=== PATIENT | female | born 1960 | race Caucasian/White ===

== ENCOUNTER 2016-07-23 20:39 | Emergency (ER) | payer MEDICAID ==
[~2016-07-23] VITALS: Ht 165.1 cm; Wt 65.8 kg
[~2016-07-23 20:39] MED LIST: FLUO20CA36 PO
--- NOTE | 2016-07-23 21:06 | NUR ---
Patient discharged to home in stable conditon. Written and verbal after care instructions given. Patient verbalizes understanding of instructions.
== END 2016-07-23 21:21 | disposition home or self-care (01) ==
LOC: ER 20:39
DX: R21 Rash and other nonspecific skin eruption (principal); J45.909 Unspecified asthma, uncomplicated; Z88.6 Allergy status to analgesic agent
CPT/HCPCS: 99283; A4663

== ENCOUNTER 2018-08-28 03:14 | Emergency (ER) | payer MEDICAID ==
[~2018-08-28] VITALS: Ht 165.1 cm; Wt 54.4 kg
--- NOTE | 2018-08-28 04:23 | NUR ---
pt is in room #1b. dr novoa evaluated the pt.
--- NOTE | 2018-08-28 05:22 | NUR ---
pt was d/c'd to home. d/c instructions given to the pt.
[2018-08-28 05:23] VITALS: BP 129/78
== END 2018-08-28 05:24 | disposition home or self-care (01) ==
LOC: ER 03:18
DX: S49.92XA Unspecified injury of left shoulder and upper arm, initial encounter (principal); S89.92XA Unspecified injury of left lower leg, initial encounter; Z88.5 Allergy status to narcotic agent; Z79.899 Other long term (current) drug therapy; X58.XXXA Exposure to other specified factors, initial encounter; Y93.89 Activity, other specified; Y92.89 Other specified places as the place of occurrence of the external cause; Y99.8 Other external cause status
CPT/HCPCS: 73030; A4663

== ENCOUNTER 2019-03-10 23:39 | Emergency (ER) | payer MEDICAID, OTHER ==
[~2019-03-10] VITALS: Ht 165.1 cm; Wt 55.8 kg
[2019-03-11] MEDS ORDERED: TRAMADOL HCL 50 MG TABLET PO ONE
[2019-03-11] MEDS ORDERED: TRAMADOL HCL 50 MG TABLET ONE (00:01)
--- NOTE | 2019-03-11 01:02 | NUR ---
Patient discharged to home in stable conditon. Written and verbal after care instructions given. Patient verbalizes understanding of instructions. Pt walked out of ER in stable gait with friend who will drive pt home. Pt states she feels better. No acute distress noted. Vital signs stable. Respirations even + unlabored.
[2019-03-11 01:06] VITALS: BP 121/66
== END 2019-03-11 01:07 | disposition home or self-care (01) ==
LOC: ER 23:49
DX: F07.81 Postconcussional syndrome (principal); M54.2 Cervicalgia; R07.9 Chest pain, unspecified; M79.631 Pain in right forearm; J45.909 Unspecified asthma, uncomplicated; F17.210 Nicotine dependence, cigarettes, uncomplicated; Z88.5 Allergy status to narcotic agent; Z79.899 Other long term (current) drug therapy
CPT/HCPCS: 70450; 71045; 72125; 73090; A4663

== ENCOUNTER 2024-05-23 22:05 | Emergency (ER) | payer OTHER ==
[~2024-05-23] VITALS: Ht 162.6 cm; Wt 61.2 kg
[2024-05-23] MEDS ORDERED: PRED50TA PO (23:27)
[2024-05-23] MEDS ORDERED: CEPH500C2 PO (23:27)
[2024-05-23] MEDS ORDERED: CEphaleXIN 500 MG CAPSULE ONE (23:33)
[2024-05-23] MEDS ORDERED: predniSONE 50 MG TABLET ONE (23:33)
[2024-05-23] MEDS: CEphaleXIN 500 MG CAPSULE PO ONE (23:37)
[2024-05-23 23:38] VITALS: BP 132/74; O2SAT 98
[2024-05-23] MEDS: predniSONE 50 MG TABLET PO ONE (23:38)
== END 2024-05-23 23:39 | disposition home or self-care (01) ==
LOC: ER 22:05
DX: L03.211 Cellulitis of face (principal); L02.01 Cutaneous abscess of face; F17.200 Nicotine dependence, unspecified, uncomplicated; J45.909 Unspecified asthma, uncomplicated; Z79.52 Long term (current) use of systemic steroids; Z79.899 Other long term (current) drug therapy; Z88.5 Allergy status to narcotic agent; Z88.7 Allergy status to serum and vaccine
CPT/HCPCS: 99283; J7512; A4606; A4663

== ENCOUNTER 2024-05-26 23:41 | Emergency (ER) | payer OTHER ==
[~2024-05-26] VITALS: Ht 162.6 cm; Wt 60.8 kg
[~2024-05-26 23:41] MED LIST changes: +CEPH500C2 PO; +PRED50TA PO
[2024-05-27 02:18] LABS: BASOPHILS % (AUTO) 0.4 % (0.0-2.0); EOSINOPHILS % (AUTO) 0.3 % (0.0-7.0); HEMATOCRIT 35.2 % (31.2-41.9); HEMOGLOBIN 11.4 g/dL (10.9-14.3); LYMPHOCYTES # (AUTO) 2.2 K/uL (0.8-4.8); LYMPHOCYTES % (AUTO) 24.3 % (20.5-51.5); MEAN CORPUSCULAR HEMOGLOBIN 26.5 uug (24.7-32.8); MEAN CORPUSCULAR HGB CONC 32 g/dL (32.3-35.6); MEAN CORPUSCULAR VOLUME 81.8 fL (75.5-95.3); MONOCYTES # (AUTO) 1.2 K/uL (0.1-1.30); MONOCYTES % (AUTO) 13.4 % (0.0-11.0); NEUTROPHILS # (AUTO) 5.6 K/uL (1.8-8.9); NEUTROPHILS % (AUTO) 61.6 % (38.5-71.5); PLATELET COUNT (AUTO) 297 K/uL (179-408); RED CELL DISTRIBUTION WIDTH 15.9 % (12.3-17.7)
[2024-05-27 02:30] LABS: DIFFERENTIAL COMMENT 1
[2024-05-27 02:55] LABS: ALANINE AMINOTRANSFERASE 33 U/L (14-59); ALBUMIN 3.3 g/dL (3.4-5.0); ALKALINE PHOSPHATASE 103 U/L (50-136); ASPARTATE AMINOTRANSFERASE 13 U/L (15-37); BILIRUBIN,DIRECT < 0.1 mg/dL (0.0-0.2); BILIRUBIN,TOTAL 0.2 mg/dL (0.2-1.0); CALCIUM 9.1 mg/dL (8.5-10.1); CARBON DIOXIDE 29 mmol/L (21-32); CHLORIDE 104 mmol/L (98-107); CREATININE 0.8 mg/dL (0.6-1.3); GLUCOSE 100 mg/dL (74-106); POTASSIUM 3.2 mmol/L (3.5-5.1); SODIUM SERUM 143 mmol/L (136-145); TOTAL PROTEIN, SERUM 7.9 g/dL (6.4-8.2); UREA NITROGEN, BLOOD 23 mg/dL (7-18)
[2024-05-27] MEDS ORDERED: NAPR-1192 PO (03:16)
[2024-05-27] MEDS ORDERED: ALBU8.5H8 INH (03:16)
[2024-05-27] MEDS ORDERED: POTASSIUM CHLORIDE 20 MEQ TAB.PRT.SR ONE ×2 (03:43→03:44)
[2024-05-27] MEDS: POTASSIUM CHLORIDE 20 MEQ TAB.PRT.SR PO ONE (03:46)
[2024-05-27 04:01] VITALS: BP 141/83; TEMP 98; O2SAT 98
== END 2024-05-27 04:02 | disposition home or self-care (01) ==
LOC: ER 23:50
DX: J40 Bronchitis, not specified as acute or chronic (principal); E87.6 Hypokalemia; F17.200 Nicotine dependence, unspecified, uncomplicated; Z79.52 Long term (current) use of systemic steroids; Z79.899 Other long term (current) drug therapy; Z88.0 Allergy status to penicillin; Z88.5 Allergy status to narcotic agent; Z88.7 Allergy status to serum and vaccine
CPT/HCPCS: 36415; 71045; 85025; A4606; A4663

== ENCOUNTER 2024-07-20 23:26 | Emergency (ER) | payer OTHER ==
[~2024-07-20] VITALS: Ht 162.6 cm; Wt 62.1 kg
[~2024-07-20 23:26] MED LIST changes: +ALBU8.5H8 INH; +NAPR-1192 PO
[2024-07-21 01:45] LABS: *BILIRUBIN,URIN NEGATIVE (NEGATIVE); *BLOOD, URINE TRACE (NEGATIVE); *CLARITY,URINE CLEAR (CLEAR); *COLOR,URINE YELLOW (YELLOW); *KETONES,URINE NEGATIVE (NEGATIVE); *PROTEIN,URINE NEGATIVE (NEGATIVE); *UROBILINOGEN,URINE 0.2 E.U./dl (NORMAL); LEUKOCYTE ESTERASE ,URINE 1+ (NEGATIVE); NITRITE, URINE NEGATIVE (NEGATIVE); PH,URINE 5.5 (5.0-8.0); UGLUCOSE NEGATIVE (NEGATIVE)
[2024-07-21 01:52] LABS: WBC,URINE 20-50 /HPF (0-3)
[2024-07-21 01:53] LABS: BACTERIA,URINE FEW /HPF (NONE SEEN); RBC,URINE 0-3 /HPF (0-3); SQUAMOUS EPITHELIAL CELL,UR FEW /HPF (NONE SEEN)
[2024-07-21] MEDS ORDERED: SULF1TAB48 PO (02:19)
[2024-07-21] MEDS ORDERED: MUPI22OI2 TP (02:19)
[2024-07-21 02:28] VITALS: BP 124/73; TEMP 208; O2SAT 100
== END 2024-07-21 02:28 | disposition home or self-care (01) ==
LOC: ER 23:31
DX: N39.0 Urinary tract infection, site not specified (principal); L01.00 Impetigo, unspecified; R21 Rash and other nonspecific skin eruption; F17.200 Nicotine dependence, unspecified, uncomplicated; J45.909 Unspecified asthma, uncomplicated; Z79.52 Long term (current) use of systemic steroids; Z79.899 Other long term (current) drug therapy; Z88.0 Allergy status to penicillin; Z88.5 Allergy status to narcotic agent; Z88.7 Allergy status to serum and vaccine
CPT/HCPCS: 87077; 87086; A4606; A4663